=== PATIENT | male | born 1985 | race Two or more races ===

== ENCOUNTER 2016-04-17 12:23 | Emergency (ER) | payer OTHER ==
[2016-04-17 12:34] VITALS: BP 123/94; PULSE 118; RESP 20; TEMP 98.9; O2SAT 97
--- NOTE | 2016-04-17 13:28 | UCPHY ---
H & P Time Seen by Provider: 04/17/16 12:39 Patient Type: New HPI/ROS: This patient presents with a chief complaint of acute HIV illness. 3 days ago he had sexual relations with another male whose HIV status is unknown. 2 days ago he developed myalgias, malaise and questionable fever. He had been recovering from an illness which he characterizes by sore throat nasal congestion and cough all of which are resolving. He denies any urinary tract symptoms such as dysuria, frequency, urgency or hematuria. REVIEW OF SYSTEMS: Constitutional: Malaise, subjective fever Eyes: No complaints ENT: Mild nasal congestion, mild sore throat Respiratory: Improving cough, no shortness of breath Cardiac: No chest pain Gastrointestinal: No nausea, vomiting or diarrhea Genitourinary: Denies dysuria, frequency, urgency, hematuria Musculoskeletal: Myalgias Skin: No rash Neurological: Headache Smoking Status: Current some day smoker Physical Exam: GENERAL: Well-appearing, well-nourished and in no acute distress. HEAD: Atraumatic, normocephalic. EYES: sclera anicteric, conjunctiva are normal. ENT: Moist mucous membranes. NECK: Normal range of motion, LUNGS: No respiratory distress HEART: Regular rate and rhythm EXTREMITIES: Normal range of motion, NEUROLOGICAL: Cranial nerves II through XII grossly intact. Normal speech, normal gait. PSYCH: Normal mood, normal affect. SKIN: Warm, dry, normal turgor, no visible rashes or lesions. Constitutional: Initial Vital Signs Temperature (C) 37.2 C 04/17/16 12:28 Heart Rate 118 H 04/17/16 12:28 Respiratory Rate 20 04/17/16 12:28 Blood Pressure 123/94 H 04/17/16 12:28 O2 Sat (%) 97 04/17/16 12:28 O2 Delivery Mode Room Air Allergies/Adverse Reactions: amoxicillin Allergy (Verified 04/17/16 12:28) Home Medications: Medication Instructions Recorded Emtricitabine/Tenofovir [Truvada 1 tab PO DAILY #25 tab 04/17/16 200MG/300MG (*)] Raltegravir [Isentress] 400 mg PO BID #28 tab 04/17/16 Departure - Departure Disposition: Home, Routine, Self-Care Clinical Impression: HIV exposure from body fluids Condition: Good Instructions: Emtricitabine/Tenofovir (By mouth), Raltegravir (By mouth), Antiretroviral Medication Allergy (ED), Postexposure Prophylaxis (ED) Additional Instructions: You have an appointment with the Infectious Disease specialist tomorrow at 12: 45 p.m. they will be able to answer your questions and provided further consultation. Prescriptions: Emtricitabine/Tenofovir [Truvada 200MG/300MG (*)] 1 tab PO DAILY #25 tab Raltegravir [Isentress] 400 mg PO BID #28 tab - PQRS PQRS Measurement: Not applicable
[2016-04-17 13:56] LABS: % IMMATURE GRANULYOCYTES 0.4 % (0.0-1.1); ABSOLUTE IMMATURE GRANULOCYTES 0.02 10^3/uL (0.00-0.10); ADD DIFF? NO; ADD MORPH? NO; ADD SCAN? NO; ATYPICAL LYMPHOCYTE FLAG 30 (0-99); FRAGMENT RBC FLAG 0 (0-99); HEMATOCRIT 45.6 % (40.0-51.0); HEMOGLOBIN 15.5 g/dL (13.7-17.5); LEFT SHIFT FLG 0 (0-99); LIPEMIA HEMOLYSIS FLAG 90 (0-99); MEAN CELL HEMOGLOBIN 30.1 pg (27.9-34.1); MEAN CELL VOLUME 88.5 fL (81.5-99.8); MEAN PLATELET VOLUME 10.1 fL (8.7-11.7); PLATELET CLUMPS FLAG 0 (0-99); PLATELET COUNT 216 10^3/uL (150-400); RED BLOOD CELL COUNT 5.15 10^6/uL (4.40-6.38); RED CELL DISTRIBUTION WIDTH 12.7 % (11.5-15.2)
[2016-04-17 14:20] LABS: ALANINE AMINOTRANSFERASE 54 IU/L (21-72); ALBUMIN 4.3 g/dL (3.5-5.0); ALKALINE PHOSPHATASE 70 IU/L (38-126); ANION GAP 12 mEq/L (8-16); ASPARTATE AMINOTRANSFERASE 33 IU/L (17-59); BILIRUBIN,TOTAL 0.6 mg/dL (0.1-1.4); CALCIUM 9.4 mg/dL (8.5-10.4); CARBON DIOXIDE 26 mEq/l (22-31); CHLORIDE 104 mEq/L (97-110); CREATININE 0.7 mg/dL (0.7-1.3); GLOMERULAR FILTRATION RATE > 60; GLUCOSE 97 mg/dL (70-100); POTASSIUM 4.1 mEq/L (3.5-5.2); SODIUM 142 mEq/L (134-144); TOTAL PROTEIN 7.9 g/dL (6.3-8.2)
[2016-04-18 13:22] LABS: HIV-1 RNA PCR < 1.00 copy/mL (<20)
== END 2016-04-17 14:00 | disposition home or self-care (01) ==
LOC: CED 12:23
DX: Z20.6 Contact with and (suspected) exposure to human immunodeficiency virus [HIV] (principal); M79.1 Myalgia; R53.81 Other malaise; R51 Headache; Z72.0 Tobacco use
CPT/HCPCS: 80053-PO; 85025-PO; 87536-90; 99203-PO; G0463-PO